=== PATIENT | male | born 1950 | race Asian ===

== ENCOUNTER 2016-03-01 09:57 | Outpatient (CLI) | payer OTHER ==
[~2016-03-01 09:57] MED LIST: AMLO2.5T PO; ASA LOW DOSE81 MG PO; GABA300C2 PO; METOPROLOL25 M1 PO; NITROSTAT0.4 MG SL; PERCOGESI1 PO; PROTONIX20 MG PO; TRAM50TA PO; VITAMIN B-121000 MCG PO
[2016-03-01 10:31] LABS: PLATELET COUNT 221 K/uL (142-355)
[2016-03-01 10:39] LABS: SODIUM 133 mmol/L (136-145)
== END 2016-03-01 10:57 | disposition home or self-care (01) ==
LOC: LABW 09:57
PROVIDERS: Internal Medicine
DX: I10 Essential (primary) hypertension (principal); Z12.5 Encounter for screening for malignant neoplasm of prostate
CPT/HCPCS: 36415; 80053; 80061; 81000; 84154; 84439; 84443; 85027

== ENCOUNTER 2016-07-31 07:06 | Emergency (ER) | payer OTHER ==
[~2016-07-31] VITALS: Ht 165.1 cm; Wt 78.5 kg
[2016-07-31] MEDS ORDERED: TAMS0.4C PO (07:46)
[2016-07-31] MEDS ORDERED: RAMI10CA PO (07:46)
[2016-07-31] MEDS ORDERED: ALBU90AE13 INH (07:48)
[2016-07-31 08:13] LABS: PLATELET COUNT 150 K/uL (142-355)
[2016-07-31 08:28] LABS: POTASSIUM 3.4 mmol/L (3.6-5.2); SODIUM 137 mmol/L (136-145)
[2016-07-31 08:48] LABS: PARTIAL THROMBOPLASTIN TIME 25.2 SECONDS (24.5-33.6)
[2016-07-31 09:08] VITALS: BP 132/78; TEMP 97.1
== END 2016-07-31 09:15 | disposition home or self-care (01) ==
LOC: ED 07:06
PROVIDERS: Specialist
DX: R10.84 Generalized abdominal pain (principal); R07.89 Other chest pain; I45.19 Other right bundle-branch block
CPT/HCPCS: 36415; 80053; 81000; 82550; 83880; 84484; 85027; 85379; 85610; 85730; 86318; 93005; 99283

== ENCOUNTER 2016-08-01 03:58 | Emergency (ER) | payer OTHER ==
[~2016-08-01] VITALS: Ht 165.1 cm; Wt 77.1 kg
[~2016-08-01 03:58] MED LIST changes: +ALBU90AE13 INH; +RAMI10CA PO; +TAMS0.4C PO
[2016-08-01 04:54] LABS: PLATELET COUNT 163 K/uL (142-355)
[2016-08-01 05:10] LABS: POTASSIUM 3.7 mmol/L (3.6-5.2); SODIUM 139 mmol/L (136-145)
[2016-08-01 06:26] VITALS: BP 168/89; TEMP 97.8
== END 2016-08-01 06:26 | disposition home or self-care (01) ==
LOC: ED 03:58
DX: R51 Headache (principal); R60.9 Edema, unspecified
CPT/HCPCS: 36415; 80053; 81000; 85027; 87081; 87880; 99283

== ENCOUNTER 2016-09-04 14:07 | Emergency (ER) | payer OTHER ==
[~2016-09-04] VITALS: Ht 165.1 cm; Wt 771.6 kg
[2016-09-04 14:15] VITALS: TEMP 98
[2016-09-04] MEDS ORDERED: FLUTICASONE50 MCG (14:48)
[2016-09-04 14:55] LABS: PLATELET COUNT 183 K/uL (142-355)
[2016-09-04 15:06] LABS: POTASSIUM 3.6 mmol/L (3.6-5.2); SODIUM 140 mmol/L (136-145)
[2016-09-04 16:44] VITALS: BP 150/75
== END 2016-09-04 16:43 | disposition home or self-care (01) ==
LOC: ED 14:07
DX: J32.0 Chronic maxillary sinusitis (principal)
CPT/HCPCS: 36415; 80053; 85027; 99283

== ENCOUNTER 2017-03-26 11:26 | Emergency (ER) | payer OTHER ==
[~2017-03-26] VITALS: Ht 165.1 cm; Wt 77.1 kg
[~2017-03-26 11:26] MED LIST changes: +FLUTICASONE50 MCG
[2017-03-26 12:22] LABS: PLATELET COUNT 201 K/uL (142-355)
[2017-03-26 12:29] LABS: POTASSIUM 4.6 mmol/L (3.6-5.2); SODIUM 132 mmol/L (136-145)
[2017-03-26 12:36] LABS: PARTIAL THROMBOPLASTIN TIME 22.3 SECONDS (24.5-33.6)
[2017-03-26 13:40] VITALS: BP 116/75; TEMP 98
== END 2017-03-26 13:40 | disposition home or self-care (01) ==
LOC: ED 11:26
PROVIDERS: Emergency Medicine
DX: I95.1 Orthostatic hypotension (principal)
CPT/HCPCS: 36415; 80053; 80307; 81000; 82550; 84484; 85027; 85610; 85730; 93005; 96360; 99284

== ENCOUNTER 2017-04-17 10:50 | Outpatient (CLI) | payer OTHER | END 2017-04-17 23:58 | disposition home or self-care (01) | LOC: RAD 10:50 | DX: M54.2 Cervicalgia (principal) ==

== ENCOUNTER 2017-05-21 10:25 | Outpatient (CLI) | payer OTHER | END 2017-05-21 18:11 | disposition home or self-care (01) | LOC: RAD 10:25 | DX: M25.511 Pain in right shoulder (principal) ==

== ENCOUNTER 2017-06-04 08:16 | Outpatient (CLI) | payer OTHER | END 2017-06-04 20:24 | disposition home or self-care (01) | LOC: LABW 08:16 | PROVIDERS: Nurse Practitioner Adult Health | DX: I25.10 Atherosclerotic heart disease of native coronary artery without angina pectoris (principal); E78.2 Mixed hyperlipidemia; Z79.899 Other long term (current) drug therapy; Z51.81 Encounter for therapeutic drug level monitoring | CPT/HCPCS: 36415; 80061; 80076 ==

== ENCOUNTER 2017-11-03 11:11 | Outpatient (CLI) | payer OTHER ==
[2017-11-03 12:34] LABS: PLATELET COUNT 200 K/uL (142-355)
[2017-11-03 12:38] LABS: POTASSIUM 4.5 mmol/L (3.6-5.2)
== END 2017-11-03 23:23 | disposition home or self-care (01) ==
LOC: LABW 11:11
PROVIDERS: Internal Medicine
DX: I10 Essential (primary) hypertension (principal)
CPT/HCPCS: 36415; 80053; 80061; 81000; 84443; 85027

== ENCOUNTER 2017-11-14 10:39 | Outpatient (CLI) | payer OTHER | END 2017-11-14 22:18 | disposition home or self-care (01) | LOC: LABW 10:39 | DX: R74.0 Nonspecific elevation of levels of transaminase and lactic acid dehydrogenase [LDH] (principal) | CPT/HCPCS: 36415; 80074 ==

== ENCOUNTER 2017-12-22 10:45 | Outpatient (CLI) | payer OTHER | END 2017-12-22 20:00 | disposition home or self-care (01) | LOC: RAD 10:45 | DX: J40 Bronchitis, not specified as acute or chronic (principal) ==

== ENCOUNTER 2018-01-12 10:03 | Outpatient (CLI) | payer OTHER | END 2018-01-12 19:45 | disposition home or self-care (01) | LOC: CT 10:03 | DX: Z13.6 Encounter for screening for cardiovascular disorders (principal); Z13.9 Encounter for screening, unspecified ==

== ENCOUNTER 2018-01-19 10:25 | Outpatient (CLI) | payer OTHER | END 2018-01-19 22:30 | disposition home or self-care (01) | LOC: US 10:25 | DX: Z13.6 Encounter for screening for cardiovascular disorders (principal) ==

== ENCOUNTER 2018-04-30 10:40 | Outpatient (CLI) | payer OTHER | END 2018-04-30 19:55 | disposition home or self-care (01) | LOC: RESP 10:40 | DX: J44.9 Chronic obstructive pulmonary disease, unspecified (principal) | CPT/HCPCS: 94664 ==

== ENCOUNTER 2018-06-05 11:05 | Outpatient (CLI) | payer OTHER ==
[2018-06-05 11:47] LABS: PLATELET COUNT 167 K/uL (142-355)
[2018-06-05 12:14] LABS: POTASSIUM 3.6 mmol/L (3.6-5.2)
== END 2018-06-05 19:46 | disposition home or self-care (01) ==
LOC: LABW 11:05
PROVIDERS: Internal Medicine
DX: I10 Essential (primary) hypertension (principal); J44.9 Chronic obstructive pulmonary disease, unspecified; E78.49 Other hyperlipidemia; I25.10 Atherosclerotic heart disease of native coronary artery without angina pectoris
CPT/HCPCS: 36415; 80053; 80061; 81000; 84439; 84443; 85027

== ENCOUNTER 2018-06-09 08:54 | Outpatient (CLI) | payer OTHER ==
[~2018-06-09] VITALS: Ht 165.1 cm; Wt 78.5 kg
== END 2018-06-09 22:45 | disposition home or self-care (01) ==
LOC: NM 08:54
DX: I25.10 Atherosclerotic heart disease of native coronary artery without angina pectoris (principal)
CPT/HCPCS: A9500; J2785

== ENCOUNTER 2018-07-03 09:40 | Outpatient (CLI) | payer OTHER | END 2018-07-03 23:19 | disposition home or self-care (01) | LOC: LABW 09:40 | PROVIDERS: Nurse Practitioner Adult Health | DX: I25.10 Atherosclerotic heart disease of native coronary artery without angina pectoris (principal); Z79.899 Other long term (current) drug therapy | CPT/HCPCS: 36415; 80061; 80076 ==

== ENCOUNTER 2018-11-06 18:03 | Emergency (ER) | payer OTHER ==
[~2018-11-06] VITALS: Ht 165.1 cm; Wt 78.5 kg
[2018-11-06 18:12] VITALS: BP 174/109; TEMP 97.3
[2018-11-06 19:57] LABS: PLATELET COUNT 190 K/uL (142-355)
[2018-11-06 20:09] LABS: POTASSIUM 4.1 mmol/L (3.6-5.2)
== END 2018-11-06 20:45 | disposition home or self-care (01) ==
LOC: ED 18:03
PROVIDERS: Family Medicine
DX: L02.411 Cutaneous abscess of right axilla (principal)
CPT/HCPCS: 36415; 80053; 85027; 99282

== ENCOUNTER 2018-12-07 10:15 | Outpatient (CLI) | payer OTHER ==
[2018-12-07 11:17] LABS: POTASSIUM 4.3 mmol/L (3.6-5.2)
[2018-12-07 11:22] LABS: PLATELET COUNT 215 K/uL (142-355)
== END 2018-12-07 19:25 | disposition home or self-care (01) ==
LOC: LABW 10:15
PROVIDERS: Internal Medicine
DX: I25.10 Atherosclerotic heart disease of native coronary artery without angina pectoris (principal); Z79.899 Other long term (current) drug therapy
CPT/HCPCS: 36415; 80053; 80061; 81000; 84439; 84443; 85027

== ENCOUNTER 2019-02-13 13:36 | Emergency (ER) | payer OTHER ==
[~2019-02-13] VITALS: Ht 165.1 cm; Wt 78.5 kg
[2019-02-13 13:55] VITALS: TEMP 97.9
[2019-02-13 14:40] LABS: PLATELET COUNT 171 K/uL (142-355)
[2019-02-13 14:46] LABS: POTASSIUM 4.2 mmol/L (3.6-5.2)
[2019-02-13 16:00] VITALS: BP 137/86
== END 2019-02-13 16:06 | disposition home or self-care (01) ==
LOC: ED 13:36
PROVIDERS: Emergency Medicine
DX: J44.9 Chronic obstructive pulmonary disease, unspecified (principal); F17.210 Nicotine dependence, cigarettes, uncomplicated
CPT/HCPCS: 80053; 85027; 87502; 87651; 94664; 96372; 99283; J0696; J2930

== ENCOUNTER 2019-05-11 11:54 | Outpatient (CLI) | payer OTHER | END 2019-05-11 19:23 | disposition home or self-care (01) | LOC: RAD 11:54 | DX: M25.511 Pain in right shoulder (principal) ==

== ENCOUNTER 2019-08-21 08:57 | Outpatient (CLI) | payer OTHER ==
[2019-08-21 10:09] LABS: PLATELET COUNT 220 K/uL (142-355)
[2019-08-21 10:14] LABS: POTASSIUM 3.9 mmol/L (3.6-5.2)
== END 2019-08-21 23:14 | disposition home or self-care (01) ==
LOC: LABW 08:57
PROVIDERS: Internal Medicine
DX: I25.10 Atherosclerotic heart disease of native coronary artery without angina pectoris (principal); M19.90 Unspecified osteoarthritis, unspecified site; K22.10 Ulcer of esophagus without bleeding; I10 Essential (primary) hypertension; Z79.899 Other long term (current) drug therapy
CPT/HCPCS: 36415; 80053; 80061; 80307; 81000; 84439; 84443; 85027

== ENCOUNTER 2019-10-29 09:57 | Outpatient (CLI) | payer OTHER | END 2019-10-29 23:13 | disposition home or self-care (01) | LOC: CT 09:57 | DX: R59.1 Generalized enlarged lymph nodes (principal) | CPT/HCPCS: 36415; 82565; 84520; Q9963 ==

== ENCOUNTER 2020-03-24 10:19 | Outpatient (CLI) | payer OTHER | END 2020-03-24 23:01 | disposition home or self-care (01) | LOC: LABW 10:19 | PROVIDERS: ATTEND Nurse Practitioner Adult Health | DX: I25.10 Atherosclerotic heart disease of native coronary artery without angina pectoris (principal); E78.2 Mixed hyperlipidemia; Z79.899 Other long term (current) drug therapy | CPT/HCPCS: 36415; 80048; 80061; 80076 ==

== ENCOUNTER 2020-04-03 11:01 | Outpatient (CLI) | payer OTHER ==
[2020-04-03 11:16] LABS: PLATELET COUNT 200 K/uL (142-355)
== END 2020-04-03 22:43 | disposition home or self-care (01) ==
LOC: LABW 11:01
PROVIDERS: ATTEND Internal Medicine
DX: I10 Essential (primary) hypertension (principal); I25.10 Atherosclerotic heart disease of native coronary artery without angina pectoris
CPT/HCPCS: 36415; 81000; 84439; 84443; 85027

== ENCOUNTER 2020-06-28 10:53 | Day surgery (SDC) | payer OTHER ==
[2020-06-21 09:27] LABS: PLATELET COUNT 243 K/uL (142-355)
[2020-06-21 09:35] LABS: POTASSIUM 4.4 mmol/L (3.6-5.2)
[~2020-06-28] VITALS: Ht 30.5 cm; Wt 0.5 kg
== END 2020-06-28 15:10 | disposition home or self-care (01) ==
LOC: OR 10:53
PROVIDERS: ATTEND Internal Medicine Gastroenterology
PROC: 0DBM8ZZ Excision of Descending Colon, Via Natural or Artificial Opening Endoscopic (ICD-10-PCS; principal; 2020-06-28)
DX: D12.4 Benign neoplasm of descending colon (principal); K57.30 Diverticulosis of large intestine without perforation or abscess without bleeding; K64.8 Other hemorrhoids; Z12.11 Encounter for screening for malignant neoplasm of colon; Z20.822 Contact with and (suspected) exposure to COVID-19
CPT/HCPCS: 80053; 85027; 87635; J2704; U0003

== ENCOUNTER 2020-09-09 09:35 | Outpatient (CLI) | payer OTHER ==
[2020-09-09 10:52] LABS: PLATELET COUNT 212 K/uL (142-355)
[2020-09-09 11:06] LABS: POTASSIUM 4.3 mmol/L (3.6-5.2)
== END 2020-09-09 19:04 | disposition home or self-care (01) ==
LOC: LABW 09:35
PROVIDERS: ATTEND Internal Medicine
DX: I25.10 Atherosclerotic heart disease of native coronary artery without angina pectoris (principal)
CPT/HCPCS: 36415; 80053; 85027

== ENCOUNTER 2020-10-20 14:42 | Outpatient (CLI) | payer OTHER | END 2020-10-20 22:07 | disposition home or self-care (01) | LOC: RESP 14:42 | PROVIDERS: ATTEND Specialist | DX: I25.118 Atherosclerotic heart disease of native coronary artery with other forms of angina pectoris (principal); I10 Essential (primary) hypertension; I77.810 Thoracic aortic ectasia; F17.200 Nicotine dependence, unspecified, uncomplicated ==

== ENCOUNTER 2021-02-07 08:53 | Outpatient (CLI) | payer OTHER ==
[2021-02-07 09:14] LABS: PLATELET COUNT 207 K/uL (142-355)
[2021-02-07 09:30] LABS: POTASSIUM 4.2 mmol/L (3.6-5.2)
== END 2021-02-07 19:42 | disposition home or self-care (01) ==
LOC: LABW 08:53
PROVIDERS: ATTEND Internal Medicine
DX: Z00.00 Encounter for general adult medical examination without abnormal findings (principal); I25.10 Atherosclerotic heart disease of native coronary artery without angina pectoris; Z79.899 Other long term (current) drug therapy
CPT/HCPCS: 36415; 80053; 80061; 81000; 84439; 84443; 85027

== ENCOUNTER 2021-07-17 08:12 | Outpatient (CLI) | payer OTHER ==
[2021-07-17 08:45] LABS: PLATELET COUNT 176 K/uL (142-355)
[2021-07-17 09:05] LABS: POTASSIUM 3.6 mmol/L (3.6-5.2)
== END 2021-07-17 19:26 | disposition home or self-care (01) ==
LOC: LABW 08:12
PROVIDERS: ATTEND Internal Medicine
DX: I25.10 Atherosclerotic heart disease of native coronary artery without angina pectoris (principal); Z79.899 Other long term (current) drug therapy
CPT/HCPCS: 36415; 80053; 80061; 81000; 84439; 84443; 85027

== ENCOUNTER 2021-12-20 13:49 | Outpatient (CLI) | payer OTHER ==
[2021-12-20 14:45] LABS: PLATELET COUNT 273 K/uL (142-355)
== END 2021-12-20 23:12 | disposition home or self-care (01) ==
LOC: LAB 13:49
PROVIDERS: ATTEND Internal Medicine
DX: I25.10 Atherosclerotic heart disease of native coronary artery without angina pectoris (principal); I10 Essential (primary) hypertension
CPT/HCPCS: 80053; 80061; 85027

== ENCOUNTER 2022-08-20 12:59 | Outpatient (CLI) | payer OTHER ==
[2022-08-20 13:52] LABS: PLATELET COUNT 257 K/uL (142-355)
[2022-08-20 14:16] LABS: POTASSIUM 4.4 mmol/L (3.6-5.2)
== END 2022-08-20 20:35 | disposition home or self-care (01) ==
LOC: LAB 12:59
PROVIDERS: ATTEND Internal Medicine
DX: I25.10 Atherosclerotic heart disease of native coronary artery without angina pectoris (principal); Z79.899 Other long term (current) drug therapy
CPT/HCPCS: 80053; 80061; 81002; 84439; 84443; 85027

== ENCOUNTER 2022-09-24 08:45 | Outpatient (CLI) | payer OTHER ==
[~2022-09-24] VITALS: Ht 165.1 cm; Wt 78.0 kg
== END 2022-09-24 20:09 | disposition home or self-care (01) ==
LOC: NM 08:45
PROVIDERS: ATTEND Specialist
DX: I25.10 Atherosclerotic heart disease of native coronary artery without angina pectoris (principal); E78.2 Mixed hyperlipidemia
CPT/HCPCS: A9500; J2785